=== PATIENT | female | born 1955 | race American Indian/Alaskan Native ===

== ENCOUNTER 2020-01-23 06:17 | Day surgery (SDC) | payer MEDICARE ==
[2020-01-23] MEDS ORDERED: BACTERIOSTATIC SODIUM CHLORIDE 0.9% 30 ML VIAL INFILTRATI ONE (06:20)
[2020-01-23] MEDS ORDERED: LACTATED RINGERS 1,000 ML ONE (06:20)
[2020-01-23] MEDS ORDERED: LACTATED RINGERS 1,000 ML IV SCH (07:00)
[2020-01-23] MEDS ORDERED: MIDAZOLAM 2 MG/2 ML INJ IV NR (07:17)
[2020-01-23] MEDS ORDERED: LIDOCAINE (1%) 10 MG/1 ML VIAL 20 ML MDV ONE (07:21)
[2020-01-23] MEDS ORDERED: BUPIVACAINE/PF (0.5%) 5 MG/1 ML 10 ML VIAL INFILTRATI ONE ×2 (07:21→08:24)
[2020-01-23] MEDS ORDERED: methylPREDNISolone ACETATE 40 MG/1 ML INJ ONE (07:22)
--- NOTE | 2020-01-23 07:22 | Anesthesia Day of Surgery ---
Anesthesia Day of Surgery - Day of Surgery Patient Examined: Yes Patient H&P Reviewed: Yes Patient is NPO: Yes
--- NOTE | 2020-01-23 07:23 | Anesthesia Consultation ---
Anesthesia Consult and Med Hx Date of service: 01/23/20 - Airway Anesthetic Teeth Evaluation: Chipped ROM Head & Neck: Adequate Mental/Hyoid Distance: Adequate Mallampati Class: Class II Intubation Access Assessment: Probably Good - Pre-Operative Health Status ASA Pre-Surgery Classification: ASA2 Proposed Anesthetic Plan: MAC - Pulmonary Hx Smoking: No Hx Sleep Apnea: No (ELVIE PRE SCREEN HIGH RISK.) - Cardiovascular System Hx Hypertension: Yes (TOOK SELF OFF MEDS X 5 MONTHS) - Central Nervous System Hx Psychiatric Problems: No - Other Systems Hx Cancer: No - Additional Comments Anesthesia Medical History Comments: Very [place]
[2020-01-23] MEDS ORDERED: ONDANSETRON 4 MG/2 ML INJ ONE (07:41)
[2020-01-23] MEDS ORDERED: LIDOCAINE MPF (2%) 20 MG/1 ML VIAL 5 ML ONE (07:41)
[2020-01-23] MEDS ORDERED: propofoL 200 MG/20 ML VIAL IV ONE ×2 (07:42→08:55)
[2020-01-23] MEDS ORDERED: HYDROmorphone 1 MG/1 ML INJ ONE (07:42)
[2020-01-23] MEDS ORDERED: KETAMINE/STERILE WATER 50 MG/ML SYRINGE ONE (08:25)
[2020-01-23] MEDS ORDERED: BUPIVACAINE/PF (0.5%) 5 MG/1 ML 30 ML VIAL INFILTRATI ONE ×2 (08:50)
[2020-01-23] MEDS ORDERED: methylPREDNISolone ACETATE 40 MG/1 ML INJ INTRA-ARTI ONE (08:52)
[2020-01-23] MEDS ORDERED: LIDOCAINE (1%) 10 MG/1 ML VIAL 20 ML MDV INFILTRATI ONE (08:52)
[2020-01-23] MEDS ORDERED: WATER FOR IRRIG STERILE 1,500 ML BOTTLE IR ONE (08:53)
--- NOTE | 2020-01-23 09:23 | Procedure Note ---
Date of procedure: 01/23/20 Pre-op diagnosis: Right knee pain Post-op diagnosis: same Procedure: Geniculate nerve radiofrequency ablation right knee Procedure The patient was brought to the OR and placed in the OR table supine position patient was Given IV and was masked the procedure following this the patient's right knee was prepped and draped in the routine sterile manner. A timeout procedure was done to identify the patient and the correct operative site. Under C-arm visualization the skin was anesthetized with the 1% lidocaine at both the medial and lateral suprapatellar regions as well as the proximal portion of the medial tibial metaphysis. Following this the the introducers radiofrequency ablator introducer probes were inserted into the distal femoral metaphysis close to the bone and midway along the sagittal plane as well as along the proximal tibial metaphysis to be appropriate place simultaneously following this following this the probe were checked for full motor nerve function there did not appear to be any next the radiofrequency ablator was turned on and the nerves were ablated to a temperature of 60C for approximately 2-1/2 minutes each. A mixture of Depo-Medrol and lidocaine was then injected into each location to help with postoperative pain and inflammation. The patient tolerated the procedure there were no complications he was then taken to postanesthesia recovery in a stable condition Anesthesia: other (IV sedation) Surgeon: CLARITZA CORREA Estimated blood loss: minimal Pathology: none Condition: stable Disposition: PACU
--- NOTE | 2020-01-23 09:35 | Post Anesthesia Evaluation ---
- Post Anesthesia Evaluation Patient Participated: Yes Airway Patent: Yes Stable Respiratory Function: Yes Nausea/Vomiting: No Temp > 96.8F: Yes Pain Manageable: Yes Adequeate Hydration: Yes Anesthesia Complications: No Block Receding Appropriately: Not Applicable Patient on Ventilator: No
[2020-01-23] MEDS ORDERED: HYDROcodone/ACETAMINOPHEN 5-325 MG TAB PO PRN (09:44)
[2020-01-23 10:32] VITALS: BP 128/80
--- NOTE | 2020-01-23 11:48 | XRay Report ---
XR knee 1-2V RT INDICATION / CLINICAL INFORMATION: RT KNEE PAIN. COMPARISON: None available. FINDINGS: Multiple needles are seen in the right knee Fluoroscopy time: 20 seconds. Fluoroscopic images: 3. IMPRESSION: Multiple needles seen in the right knee Signer Name: Phil Mckeon MD FACR Signed: 01/23/2020 11:44 AM Workstation Name: [id number]
== END 2020-01-23 06:18 | disposition home or self-care (01) ==
LOC: OR 06:17
PROVIDERS: ATTEND Orthopaedic Surgery
DX: M25.561 Pain in right knee (principal); M17.0 Bilateral primary osteoarthritis of knee; G43.909 Migraine, unspecified, not intractable, without status migrainosus; I10 Essential (primary) hypertension; Z79.899 Other long term (current) drug therapy; Z90.710 Acquired absence of both cervix and uterus; Z98.890 Other specified postprocedural states
CPT/HCPCS: 64624; 73560; A4649; J1030; J1170; J2250; J2405; J2704; J3490; J7120

== ENCOUNTER 2021-08-17 05:49 | Day surgery (SDC) | payer MEDICARE ==
[2021-08-17] MEDS ORDERED: ceFAZolin/STERILE WATER 2 GM/20 ML SYRINGE IV NR (07:00)
[2021-08-17] MEDS ORDERED: LIDOCAINE (1%) 10 MG/1 ML VIAL 20 ML MDV ONE (07:02)
[2021-08-17] MEDS ORDERED: BUPIVACAINE/PF (0.5%) 5 MG/1 ML 30 ML VIAL INFILTRATI ONE ×2 (07:02→09:13)
[2021-08-17] MEDS ORDERED: LACTATED RINGERS 1,000 ML IV SCH (07:30)
[2021-08-17] MEDS ORDERED: LACTATED RINGERS 1,000 ML ONE (07:34)
[2021-08-17] MEDS ORDERED: MIDAZOLAM 2 MG/2 ML INJ ONE (07:46)
[2021-08-17] MEDS ORDERED: LIDOCAINE MPF (2%) 20 MG/1 ML VIAL 5 ML ONE (07:46)
[2021-08-17] MEDS ORDERED: dexAMETHasone 20 MG/5 ML VIAL ONE (07:46)
[2021-08-17] MEDS ORDERED: ONDANSETRON 4 MG/2 ML INJ ONE (07:46)
[2021-08-17] MEDS ORDERED: ROCURONIUM 50 MG/5 ML INJ IV ONE (07:46)
[2021-08-17] MEDS ORDERED: SUCCINYLCHOLINE CHLORIDE 200 MG/10 ML INJ MDV ONE (07:46)
[2021-08-17] MEDS ORDERED: propofoL 200 MG/20 ML VIAL IV ONE (07:47)
[2021-08-17] MEDS ORDERED: fentaNYL 100 MCG/2 ML INJ ONE (07:47)
[2021-08-17] MEDS ORDERED: HYDROmorphone 1 MG/1 ML INJ IV PRN ×2 (09:10→10:00)
[2021-08-17] MEDS ORDERED: GLYCOPYRROLATE 0.4 MG/2 ML INJ ONE (09:11)
[2021-08-17] MEDS ORDERED: NEOSTIGMINE 10MG/10 ML INJ MDV ONE (09:11)
[2021-08-17] MEDS ORDERED: LIDOCAINE (1%) 10 MG/1 ML VIAL 20 ML MDV INFILTRATI ONE (09:13)
--- NOTE | 2021-08-17 09:30 | Short Stay Summary ---
Short Stay Documentation Date of service: 08/17/21 - History Principal diagnosis: symptomatic cholelithiasis H&P: obtained from office - Allergies and Medications Current Medications: Allergies No Known Allergies Allergy (Verified 11/07/19 14:10) Home Medications Medication Instructions Recorded Confirmed Last Taken Type Tylenol 500 mg PO BID 08/09/21 08/09/21 Unknown History Vitamin D (Nf) 1 tab PO 1XW 08/09/21 08/09/21 Unknown History amLODIPine [Norvasc] 5 mg PO DAILY 08/09/21 08/09/21 Unknown History Active Medications Cefazolin Sodium (Cefazolin/Sterile Water 2 Gm/20 Ml Syringe) 2 gm IV PREOP NR Stop: 08/17/21 23:59 Hydromorphone HCl (Hydromorphone 1 Mg/1 Ml Inj) 0.25 mg IV Q10MIN PRN PRN Reason: Pain, Moderate (4-6) Hydromorphone HCl (Hydromorphone 1 Mg/1 Ml Inj) 0.5 mg IV Q10MIN PRN PRN Reason: Pain , Severe (7-10) Lactated Ringer's (Lactated Ringers) 1,000 mls @ 75 mls/hr IV DIRECT DANA Ondansetron HCl (Ondansetron 4 Mg/2 Ml Inj) 4 mg IV ONCE PRN PRN Reason: Nausea And Vomiting - Brief post op/procedure progress note Date of procedure: 08/17/21 Pre-op diagnosis: symptomatic cholelithiasis Post-op diagnosis: same Procedure: laparoscopic cholecystectomy Anesthesia: GETA, local Findings: Omental adhesions to anterior abdominal wall Adhesions from duodenum to gallbladder Surgeon: DEMOND GUTIERRES (Apns: Sheila Yang) Estimated blood loss: minimal Pathology: list (gallbladder) Specimen disposition: to lab Condition: stable - Hospital course Hospital course: Pt observed in PACU and discharged to home in stable condition - Disposition Condition at discharge: Good Disposition: 01 HOME / SELF CARE / HOMELESS Short Stay Discharge Plan Activity: other (no heavy lifting x 1wk) Diet: regular Wound: open to air, per your surgeon's advice Additional Instructions: SEE PRINTED INSTRUCTIONS Follow up with: PRIMARY CARE, [Primary Care Provider] - 7 Days DEMOND GUTIERRES DO [Staff Physician] - 14 Days Prescriptions: HYDROcodone/APAP 5-325 [Sheldon 5/325] 1 each PO Q6HR PRN #15 tablet PRN Reason: Pain
[2021-08-17] MEDS ORDERED: ONDANSETRON 4 MG/2 ML INJ IV PRN (10:30)
[2021-08-17] MEDS ORDERED: SIMETHICONE 80 MG CHEW TAB PO PRN (12:00)
[2021-08-17] MEDS ORDERED: KETOROLAC 30 MG/1 ML INJ IV ONE (12:00)
--- NOTE | 2021-08-17 14:25 | Operative Report ---
Operative Report Operative Report: Date of procedure: 08/17/21 Pre-op diagnosis: symptomatic cholelithiasis Post-op diagnosis: same Procedure: laparoscopic cholecystectomy Anesthesia: GETA, local Findings: Omental adhesions to anterior abdominal wall Adhesions from duodenum to gallbladder Surgeon: DEMOND GUTIERRES (Motor Inspection Mechanic: Sheila Yang) Estimated blood loss: minimal Pathology: list (gallbladder) Specimen disposition: to lab Condition: stable Hospital course: Pt observed in PACU and discharged to home in stable condition Condition at discharge: Good Disposition: 01 HOME / SELF CARE / HOMELESS HPI an indication: 66-year-old female who presented to the surgery clinic with complaints of intermittent sharp right upper quadrant abdominal pain. An ultrasound was performed which showed gallstones in the gallbladder without evidence of cholecystitis or bile duct dilatation. It was recommended that the patient undergo cholecystectomy. All risks, benefits, alternatives to surgery w ere discussed in detail and questions answered. Consent was obtained for laparoscopic, possible open cholecystectomy, possible cholangiogram. Procedure in detail: The patient was identified in the preoperative area and taken back to the operating room, placed on the operating room table in supine position. After anesthesia was induced, the abdomen was prepped and draped in usual sterile fashion and timeout was performed. Local anesthetic was infiltrated into all of the skin incision sites. A supraumbilical incision was made through which a Veress needle was inserted. The Veress needle position was confirmed using the saline drop test and the abdomen insufflated to 15 mmHg without incident. The Veress needle was then removed and a 5 mm Optiview trocar was placed through this incision. The trocar appeared to be in adhesions and therefore it was removed. A right upper quadrant 5 mm incision was then made through which a 5 mm Optiview trocar was placed. The abdomen was inspected and there was no underlying injury to the abdominal structures. Adhesions from the omentum to the anterior abdominal wall in the midline and left side of the abdomen were seen. There was no bleeding or bowel injury. An additional 12 mm subxyphoid port, 5 mm right lateral abdominal port were placed under direct visualization. The patient was then placed into reverse Trendelberg and tilted to the left. The gallbladder was grasped and retracted cephalad and above the liver. There was an adhesion from the duodenum to the neck of the gallbladder which was taken down sharply using EndoShears. Lysis of adhesions was then performed in order to free the omentum from the anterior abdominal wall in the midline. This was done using a combination of sharp dissection with EndoShears and electrocautery. Once these adhesions were taken down a 5 mm supraumbilical trocar was placed under direct visualization. The cystic duct and artery were carefully skeletonized. The medial and lateral peritoneal attachments to the gallbladder were dissected using a combination of blunt dissection with the [place] and hook electrocautery. The cystic duct and artery were the only 2 structures seen entering the gallbladder and the critical view was successfully obtained. 3 clips were placed on the proximal aspect of the cystic duct and 1 distally and this was transected in between the clips using EndoShears. 2 clips were placed on the proximal aspect of the cystic artery and 1 distally this was transected in between the clips using EndoShears. The gallbladder was dissected from the liver bed using electrocautery. The gallbladder was placed into a Endo Catch bag and removed from the abdomen via the 12mm port. The gallbladder fossa was then inspected and there was no identifiable bleeding or bile leakage. Hemostasis was ensured. The clips on the cystic duct and artery were visualized and intact. Morison's pouch and the gallbladder fossa were irrigated and the irrigant returned clear. The patient was then placed into neutral position. The 12 mm port fascia was closed with interrupted 0 Vicryl suture using the Taj Salcedo device. The remaining ports were removed under direct visualization. Skin incisions were closed with 4-0 Monocryl subcuticular stitches and skin glue. All skin incisions were once again infiltrated with local anesthetic. At the end case all sponge, instrument, sharp counts were correct 2. The patient was awoken from anesthesia, extubated, and taken to PACU in stable condition.
--- NOTE | 2021-08-17 15:26 | Anesthesia Day of Surgery ---
Anesthesia Day of Surgery - Day of Surgery Patient Examined: Yes Patient H&P Reviewed: Yes Patient is NPO: Yes
--- NOTE | 2021-08-17 15:27 | Anesthesia Consultation ---
Anesthesia Consult and Med Hx Date of service: 08/17/21 - Airway ROM Head & Neck: Adequate Mental/Hyoid Distance: Adequate Mallampati Class: Class III Intubation Access Assessment: Probably Good - Pre-Operative Health Status ASA Pre-Surgery Classification: ASA2 Proposed Anesthetic Plan: General - Pulmonary Hx Smoking: No Hx Asthma: No COPD: No Hx Pneumonia: No Hx Sleep Apnea: No (ELVIE PRE SCREEN HIGH RISK) - Cardiovascular System Hx Hypertension: Yes (X 5 YRS) Hx Heart Attack/AMI: No Hx Pacemaker: No Hx Internal Defibrillator: No - Central Nervous System Hx Seizures: No Hx Back Pain: Yes Hx Psychiatric Problems: No - Endocrine Hx End Stage Renal Disease: No Hx Cirrhosis: No Hx Liver Disease: No - Hematic Hx Anemia: No Hx Sickle Cell Disease: No - Other Systems Hx Alcohol Use: No Hx Substance Use: No Hx Cancer: No Hx Obesity: Yes
[2021-08-17 18:31] VITALS: BP 122/69
== END 2021-08-17 12:15 | disposition home or self-care (01) ==
LOC: OR 05:49
PROVIDERS: ATTEND Surgery
DX: K80.10 Calculus of gallbladder with chronic cholecystitis without obstruction (principal); K66.0 Peritoneal adhesions (postprocedural) (postinfection); I10 Essential (primary) hypertension; G43.909 Migraine, unspecified, not intractable, without status migrainosus; M19.90 Unspecified osteoarthritis, unspecified site; E66.9 Obesity, unspecified; M10.9 Gout, unspecified; Z98.890 Other specified postprocedural states; Z79.899 Other long term (current) drug therapy; Z90.710 Acquired absence of both cervix and uterus
CPT/HCPCS: 47562; 88304; J0330; J0690; J1100; J1170; J1815; J1885; J2250; J2405; J2704; J2710; J3010; J3490; J7120; U0003

== ENCOUNTER 2021-11-10 13:41 | Outpatient (CLI) | payer MEDICARE ==
--- NOTE | 2021-11-10 14:35 | XRay Report ---
AP AND LATERAL STANDING VIEWS OF BOTH KNEES INDICATION / CLINICAL INFORMATION: PAIN IN UNSPECIFIED KNEE COMPARISON: None available. FINDINGS: BONES / JOINT(S): No acute fracture or subluxation. There is moderate to advanced tricompartmental os teoarthrosis greatest at the medial compartments bilaterally where there is bone on bone appearance. SOFT TISSUES: No significant abnormality. ADDITIONAL FINDINGS: None. IMPRESSION: No acute findings. Signer Name: Antione Gallegos MD Signed: 11/10/2021 2:30 PM Workstation Name: [id number]
== END 2021-11-10 13:42 | disposition home or self-care (01) ==
LOC: XRAY 13:41
PROVIDERS: ATTEND Orthopaedic Surgery
DX: M17.0 Bilateral primary osteoarthritis of knee (principal)
CPT/HCPCS: 73565

== ENCOUNTER 2021-11-25 06:07 | Inpatient (IN) | payer MEDICARE ==
[2021-11-23 10:04] LABS: Hematocrit 42.3 % (30.3-42.9); Hemoglobin 13.8 gm/dl (10.1-14.3); Mean Corpuscular HGB Conc 33 % (30-34); Mean Corpuscular Volume 88 fl (79-97); Platelet Count 226 K/mm3 (140-440); Red Blood Count 4.82 M/mm3 (3.65-5.03); Red Cell Distribution Width 15.5 % (13.2-15.2)
[2021-11-23 10:17] LABS: Blood Urea Nitrogen 16 mg/dL (7-17); Calcium 9.4 mg/dL (8.4-10.2); Hemolysis Index 10
[2021-11-23 10:20] LABS: BUN/Creatinine Ratio 23
--- NOTE | 2021-11-23 10:50 | Anesthesia Consultation ---
Anesthesia Consult and Med Hx Date of service: 11/25/21 - Airway Anesthetic Teeth Evaluation: Good ROM Head & Neck: Adequate Mental/Hyoid Distance: Adequate Mallampati Class: Class II Intubation Access Assessment: Good - Pulmonary Exam CTA: Yes - Cardiac Exam Cardiac Exam: No Murmur - Pre-Operative Health Status ASA Pre-Surgery Classification: ASA2 Proposed Anesthetic Plan: General Nerve Block: adducter canal - Pulmonary Hx Sleep Apnea: No (ELVIE PRE SCREEN HIGH RISK) - Cardiovascular System Hx Hypertension: Yes (X 5 YRS) - Central Nervous System Hx Back Pain: Yes Hx Psychiatric Problems: No - Other Systems Hx Cancer: No Hx Obesity: Yes
[~2021-11-25 06:07] MED LIST: CELECOXIB 200 MG CAP ONE; GABAPENTIN 300 MG CAP ONE; LACTATED RINGERS 1,000 ML ONE; ceFAZolin/Water 2 GM/20 ML 2 GM/20 ML SYRINGE IV NR
[2021-11-25] MEDS: LACTATED RINGERS 1,000 ML IV SCH ×2 (06:55→15:59)
[2021-11-25] MEDS ORDERED: BUPIVACAINE/PF (0.25%) 2.5 MG/ML 30 ML VIAL INFILTRATI ONE (07:22)
[2021-11-25] MEDS ORDERED: dexAMETHasone 4 MG/ML VIAL ONE (07:22)
[2021-11-25] MEDS ORDERED: ACETAMINOPHEN 325 MG TAB ONE (07:23)
[2021-11-25] MEDS ORDERED: MIDAZOLAM 2 MG/2 ML INJ ONE (07:27)
[2021-11-25] MEDS ORDERED: fentaNYL 100 MCG/2 ML INJ ONE (07:27)
[2021-11-25] MEDS ORDERED: TRANEXAMIC ACID 1,000 MG/10 ML ONE (07:37)
[2021-11-25] MEDS ORDERED: SUCCINYLCHOLINE CHLORIDE 200 MG/10 ML INJ MDV ONE (07:50)
[2021-11-25] MEDS ORDERED: propofoL 200 MG/20 ML VIAL IV ONE (07:50)
[2021-11-25] MEDS ORDERED: LIDOCAINE MPF (2%) 20 MG/1 ML VIAL 5 ML ONE (07:50)
[2021-11-25] MEDS ORDERED: KETAMINE/STERILE WATER 50 MG/ML SYRINGE ONE (07:54)
[2021-11-25] MEDS ORDERED: ceFAZolin/STERILE WATER 2 GM/20 ML SYRINGE IV NR (08:00)
[2021-11-25] MEDS ORDERED: dexAMETHasone 20 MG/5 ML VIAL ONE (08:01)
[2021-11-25] MEDS ORDERED: PHENYLEPHRINE/NS 1,000 MCG/10 ML SYRINGE (OR USE) IV ONE (08:03)
[2021-11-25] MEDS ORDERED: ONDANSETRON 4 MG/2 ML INJ IV PRN (09:19)
[2021-11-25] MEDS ORDERED: MORPHINE 4 MG/1 ML INJ IV PRN (09:19)
[2021-11-25] MEDS ORDERED: KETOROLAC 30 MG/1 ML INJ IV PRN (09:19)
[2021-11-25] MEDS ORDERED: ONDANSETRON 4 MG/2 ML INJ IV NR (09:31)
[2021-11-25] MEDS ORDERED: BUPIVACAINE/PF (0.5%) 5 MG/1 ML 30 ML VIAL INFILTRATI ONE ×2 (09:35→10:01)
[2021-11-25] MEDS ORDERED: SODIUM CHLORIDE 0.9% 100 ML ONE (09:36)
[2021-11-25] MEDS ORDERED: SODIUM CHLORIDE 0.9% 50 ML ONE (09:36)
[2021-11-25] MEDS ORDERED: MORPHINE 10 MG/1 ML INJ ONE (09:37)
[2021-11-25] MEDS ORDERED: MAGNESIUM SULFATE 4 GM/100 ML BAG IV ONE (09:45)
[2021-11-25] MEDS ORDERED: SODIUM CHLORIDE 0.9% IRRIG SOLN 2000 ML IRRIGATION ONE (10:00)
[2021-11-25] MEDS ORDERED: HYDROmorphone 0.5 MG/0.5 ML INJ IV PRN ×2 (10:00)
[2021-11-25] MEDS ORDERED: MORPHINE 10 MG/1 ML INJ IM ONE (10:01)
[2021-11-25] MEDS ORDERED: KETOROLAC 30 MG/1 ML INJ IV ONE (10:02)
[2021-11-25] MEDS ORDERED: SODIUM CHLORIDE 0.9% 100 ML IVPB IV ONE (10:03)
[2021-11-25] MEDS ORDERED: SODIUM CHLORIDE 0.9% 50 ML VIAL IV ONE (10:03)
--- NOTE | 2021-11-25 10:44 | Procedure Note ---
Date of procedure: 11/25/21 Pre-op diagnosis: Severe arthritis right knee Post-op diagnosis: same Procedure: [Right] total knee replacement Procedure The patient was brought to the OR after being given a obturator nerve block and preoperative holding she was placed on the OR table supine position following induction elevation of anesthesia the patient is [right] lower extremity was prepped and draped in the usual sterile manner. A timeout procedure was done to identify the patient in the correct operative site. The leg was exsanguinated followed by inflation of the pneumatic tourniquet to 300 mmHg. A midline incision was made over the patella was taken down distally towards the tibial tubercle next the medial retinaculum was incised and the patella was inverted examination of the patient's knee joint revealed typical osteoarthritic changes with large bone spurs noted primarily in the medial compartment both the femoral and tibial's articular surfaces exhibited bare bone and large peripheral osteophytes next a large drill bit was used to enter the medullary canal this was followed by placement of the distal femoral cutting Jig the distal femur was resected approximately 8-9 mm of bone was removed at this time. Attention was turned to the patient's proximal tibia using a external alignme guide the bone was cut using the medial surface as the low point of care was taken to protect the medial collateral ligaments the tibial articular surface was excized and a #4 tibial based ray was selected this was followed by placement of the fixation hole or keel into the proximal tibial artery medullary canal. Attention was turned to the distal femur and using a 4 and 1 cutting block a +4 femoral component was selected AP anterior and posterior as well as Del Cid cuts were made a #4 tibial ostomy femoral component was placed and the knee was then taken to a range of motion she appeared to have stability in both the flexion and extension FOLLOWING this the trial components were removed the knee was then copiously irrigated any remaining soft tissue and bony debris were removed at this time next the cement was next and following this the tibial components were inserted beginning with the based ray followed by the polyethylene insert The femoral component was added the excess were removed the knee was held in extension until the cement hardened following hardening of cement the knee was then brought back into of flexion any remaining soft tissue and bony debris were removed at this time. The wound again was irrigated and was closed in a standard routine fashion. Dressings were applied the patient tolerated the procedure there were no complications she was then taken to post anesthesia recovery Anesthesia: MAC, regional Surgeon: CLARITZA CORREA (Ki Lei, 1st assist) Estimated blood loss: minimal Condition: stable Disposition: PACU
[2021-11-25] MEDS ORDERED: GABAPENTIN 300 MG CAP PO NR (11:00)
[2021-11-25] MEDS ORDERED: BUPIVACAINE/PF (0.5%) 5 MG/1 ML 10 ML VIAL INFILTRATI NR (11:00)
[2021-11-25] MEDS ORDERED: LIDOCAINE (1%) 10 MG/1 ML VIAL 20 ML MDV INFILTRATI NR (11:00)
[2021-11-25] MEDS ORDERED: CELECOXIB 200 MG CAP PO NR (11:00)
[2021-11-25] MEDS ORDERED: MIDAZOLAM 2 MG/2 ML INJ IV NR (11:00)
[2021-11-25] MEDS: ceFAZolin/NS 1 GM/50 ML 1 GM/50 ML BAG IV SCH ×2 (16:00→23:57)
--- NOTE | 2021-11-25 16:39 | Anesthesia Day of Surgery ---
Anesthesia Day of Surgery - Day of Surgery Patient Examined: Yes Patient H&P Reviewed: Yes Patient is NPO: Yes
[2021-11-26] MEDS: IBUPROFEN 600 MG TAB PO PRN ×2 (00:09→07:27)
[2021-11-26] MEDS: LACTATED RINGERS 1,000 ML IV SCH (05:23)
[2021-11-26] MEDS ORDERED: ENOXAPARIN 40 MG/0.4 ML INJ SUB-Q SCH (10:00)
--- NOTE | 2021-11-26 14:15 | Progress Note ---
Assessment and Plan s/p right TKR doing ok, awaiting PT evaluation, hopefuly dc soon... Subjective Date of service: 11/26/21 Interval history: c/o incisional pain, otherwise ok... Objective Vital signs: Vital Signs - 12hr 11/26/21 06:23 Temperature 97.7 F Pulse Rate 85 Respiratory 20 Rate Blood Pressure 133/72 O2 Sat by Pulse 96 Oximetry - Labs CBC & BMP: 11/23/21 09:45 11/23/21 09:45
[2021-11-26] MEDS: PANTOPRAZOLE 40 MG TAB PO SCH ×2 (14:49→18:37)
--- NOTE | 2021-11-26 18:17 | Discharge Summary ---
Providers - Providers Date of Admission: 11/25/21 09:19 Date of discharge: 11/26/21 Attending physician: CLARITZA CORREA MD 11/25/21 09:19 Consult to Case Management [CONS] Routine Services Needed at Discharge: Other Notified:: yes Additional Physician Instructions: Assess Discharge needs. Physical Therapy Evaluation and Treat [CONS] Routine Comment: Reason For Exam: Eval and Treat Exam - Constitutional Vitals: Temp Pulse Resp BP Pulse Ox 97.7 F 85 20 133/72 95 11/26/21 06:23 11/26/21 06:23 11/26/21 06:23 11/26/21 06:23 11/26/21 10:00 Plan Follow up with: DR VIKTORIA [Other] - 7 Days Prescriptions: Apixaban [Eliquis] 5 mg PO DAILY #30 Oxycodone HCl/Acetaminophen [Percocet 10/325 mg] 1 each PO Q6HR PRN #30 PRN Reason: Pain
[2021-11-26 19:49] VITALS: BP 115/72
== END 2021-11-26 19:55 | disposition home health service (06) | DRG 470 ==
LOC: OR 06:07 → EDSTATUS 08:00 → 3A 09:19
PROVIDERS: ADMIT Orthopaedic Surgery; ATTEND Orthopaedic Surgery
PROC: 0SRC0J9 Replacement of Right Knee Joint with Synthetic Substitute, Cemented, Open Approach (ICD-10-PCS; principal; 2021-11-25)
DX: M17.11 Unilateral primary osteoarthritis, right knee (principal); I10 Essential (primary) hypertension; Z20.822 Contact with and (suspected) exposure to COVID-19; E66.9 Obesity, unspecified; Z68.34 Body mass index [BMI] 34.0-34.9, adult
CPT/HCPCS: 36415; 64450; 80048; 85027; 88304; 88311; 94760; G0378; J3490; C1713; C1776; J0330; J0690; J1100; J1170; J1650; J1885; J2250; J2270; J2370; J2704; J3010; J3475; J7120; U0003